=== PATIENT | female | born 1975 | race Caucasian/White ===

== ENCOUNTER 2020-02-26 19:00 | Emergency (ER) | payer MEDICARE, MEDICAID, SELFPAY ==
[2020-02-26 19:08] VITALS: BP 121/82; PULSE 94; RESP 16; O2SAT 97; BMI 43.4
--- NOTE | 2020-02-26 19:12 | ED.LOWEXIN ---
HPI - Extremity Injury (Lower) General Chief Complaint: Extremity Injury, Lower Stated Complaint: shooting pains going down right leg and knee Time Seen by Provider: 02/26/20 19:12 Source: patient Mode of arrival: Ambulatory Limitations: no limitations History of Present Illness HPI Narrative: 44-year-old woman with a history of schizophrenia and depression presents with right thigh pain that is been present for a month. She states that Tylenol ibuprofen and ice packs have been no help. She does say that she was seen by orthopedics and an x-ray was done but no diagnosis or treatment followed. She states that it is worse with walking, laying down helps, she reports no fevers or chills. No recent trauma. Related Data Home Medications Medication Instructions Recorded Confirmed olanzapine [Zyprexa] 10 mg PO QDAY #0 01/29/17 Previous Rx's Medication Instructions Recorded prednisone 50 mg PO AMCC 3 Days #0 tab 01/29/17 Allergies Allergy/AdvReac Type Severity Reaction Status Date / Time No Known Drug Allergies Allergy Verified 02/26/20 19:36 Review of Systems Review of Systems Narrative: Pertinent positive and negative findings as per HPI Remainder of review of systems is otherwise unremarkable for Constitutional: Fevers, chills, weakness ENT: No sore throat, neck pain, ear pain CV: Chest pain, palpitations, dyspnea on exertion Respiratory: Cough, wheeze, dyspnea GI: Nausea, vomiting, diarrhea, change in bowel habits, black or bloody stools : Dysuria, hematuria, flank pain Patient History Medical History Depression (Acute) Schizophrenia (Acute) Social History Smoking Status: Never smoker Smoking Status: Never smoker Substance Use Type: does not use Exam Narrative Exam Narrative: General: Alert appropriate in no acute distress Respiratory: Able to speak in full sentences, no obvious respiratory distress Skin: No obvious rashes, warm and dry Neurologic: Grossly intact no obvious asymmetries or abnormalities Psych; flat affect, cooperative Spine: No tenderness along lumbar spine Extremity: Pain with external rotation of the right hip. Patient complains of mid thigh pain however this is not reproducible with palpation. She also complains of groin pain again, not reproducible with palpation. No skin changes appreciated. No warmth, erythema. No inguinal adenopathy. No tenderness over the trochanter bursa Initial Vital Signs Initial Vital Signs: Vital Signs Pulse Rate 94 H 02/26/20 19:08 Respiratory Rate 16 02/26/20 19:08 Blood Pressure 121/82 02/26/20 19:08 Pulse Oximetry 97 02/26/20 19:08 Course Orders Ordered: ED Orders 02/26/20 19:19 XR femur RT min 2V Stat XR hip w pel if done RT 2V Stat XR lumbar spine 2-3V Stat Discontinued Medications Acetaminophen (Tylenol) 325 mg PO NOW ONE Stop: 02/26/20 19:20 Last Admin: 02/26/20 19:29 Dose: 325 mg Documented by: ANABELLE Ibuprofen (Advil) 400 mg PO NOW ONE Stop: 02/26/20 19:20 Last Admin: 02/26/20 19:29 Dose: 400 mg Documented by: ANABELLE Vital Signs Vital signs: Vital Signs - 8 hr 02/26/20 19:08 02/26/20 20:41 Pulse Rate 94 H 74 Respiratory Rate 16 19 Blood Pressure 121/82 119/72 Pulse Oximetry 97 97 MDM - Extremity Injury (Lower) Medical Records Attestation: I reviewed the patient's medical records. Imaging Data Lumbar spine x-ray: Radiologist's Impression: FINDINGS: Bones: 5 ptu-fca-rbqdifm vertebrae are present. There is normal bony alignment. No vertebral body compression fractures. No suspicious bony lesions. Mild degenerative changes present within the lower lumbar spine including osteophytosis and mild facet sclerosis. Soft tissues: Overlying bowel gas pattern is normal. No suspicious soft tissue calcifications. IMPRESSION: Mild degenerative change. No compression deformities. Dictated by: Edilia Bermudez M.D. on 02/26/2020 at 20:16 Hip x-ray: Radiologist's Impression: FINDINGS: Bones: No fractures or dislocations. Pelvic ring appears intact. No suspicious bony lesions. There is mild bilateral hip joint space narrowing and acetabular osteophytosis. Findings are slightly more severe on the right than the left. Soft tissues: The visualized bowel gas pattern is normal. No suspicious soft tissue calcifications. IMPRESSION: Mild bilateral hip joint osteoarthritis. Dictated by: Edilia Bermudez M.D. on 02/26/2020 at 20:18 Femur x-ray: Radiologist's Impression: FINDINGS: Bones: No acute fracture or dislocation. There is mild hip joint space narrowing. Soft tissues: No suspicious soft tissue calcifications or masses. IMPRESSION: Mild hip osteoarthritis. No bony abnormalities of the femur. If there is continued pain, followup exam or additional imaging such as MRI or CT could be performed for further assessment. Dictated by: Edilia Bermudez M.D. on 02/26/2020 at 20:18 MDM Narrative Medical decision making narrative: 44-year-old woman with a month of right hip pain worse with external rotation and radiating into the groin. No evidence of lumbar compression fracture or femur pathology. Mild hip osteoarthritis. Will discuss use of ibuprofen and Tylenol and refer her back to her primary care physician. She is safe for home discharge at this time Discharge Plan Departure Patient Disposition: Home Clinical Impression: Acute hip pain Qualifiers: Laterality: right Qualified Code(s): M25.551 - Pain in right hip Instructions: DI for Hip Pain Activity Restrictions/Additional Instructions: Thank you for coming in today There is no evidence of a compression fracture in your lower back to be causing pain wrapping around to your hip. There is no suggestion of nerve problems at this level either. Your thigh bone itself looks very healthy. The x-ray of your hip does suggest some mild arthritis developing in the right hip. This may well be part of the issues that you are having. Using 400 mg of ibuprofen (2 pgna-zhi-ujvglwi pills) and 1 Tylenol every 6 hours can be very helpful in controlling pain. At this point it is safe for you to go home Please do follow-up with your primary care physician. Sometimes physical therapy can be helpful with chronic joint pains like this. Prescriptions: No Action olanzapine [Zyprexa] 10 MG tablet 10 mg PO QDAY Qty: 0 RF: 0 prednisone 50 MG tablet 50 mg PO AMCC 3 Days Qty: 0 RF: 0
--- NOTE | 2020-02-26 19:19 | DI.RAD.S_ITS ---
PROCEDURE: XR LUMBAR SPINE 2-3V INDICATIONS: pain TECHNIQUE: 3 views of the lumbar spine were acquired. COMPARISON: None. FINDINGS: Bones: 5 vem-uwa-iwinrix vertebrae are present. There is normal bony alignment. No vertebral body compression fractures. No suspicious bony lesions. Mild degenerative changes present within the lower lumbar spine including osteophytosis and mild facet sclerosis. Soft tissues: Overlying bowel gas pattern is normal. No suspicious soft tissue calcifications. IMPRESSION: Mild degenerative change. No compression deformities. Dictated by: Edilia Bermudez M.D. on 02/26/2020 at 20:16 Approved by: dEilia Bermudez M.D. on 02/26/2020 at 20:17
--- NOTE | 2020-02-26 19:19 | DI.RAD.S_ITS ---
PROCEDURE: XR HIP W PEL IF DONE RT 2V INDICATIONS: pain TECHNIQUE: AP pelvis with lateral view(s) of the right hip(s). COMPARISON: None. FINDINGS: Bones: No fractures or dislocations. Pelvic ring appears intact. No suspicious bony lesions. There is mild bilateral hip joint space narrowing and acetabular osteophytosis. Findings are slightly more severe on the right than the left. Soft tissues: The visualized bowel gas pattern is normal. No suspicious soft tissue calcifications. IMPRESSION: Mild bilateral hip joint osteoarthritis. Dictated by: Edilia Bermudez M.D. on 02/26/2020 at 20:18 Approved by: Edilia Bermudez M.D. on 02/26/2020 at 20:18
--- NOTE | 2020-02-26 19:19 | DI.RAD.S_ITS ---
PROCEDURE: XR FEMUR RT MIN 2V INDICATIONS: pain TECHNIQUE: 2 views of the femur were acquired. COMPARISON: None. FINDINGS: Bones: No acute fracture or dislocation. There is mild hip joint space narrowing. Soft tissues: No suspicious soft tissue calcifications or masses. IMPRESSION: Mild hip osteoarthritis. No bony abnormalities of the femur. If there is continued pain, followup exam or additional imaging such as MRI or CT could be performed for further assessment. Dictated by: Edilia Bermudez M.D. on 02/26/2020 at 20:18 Approved by: Edilia Bermudez M.D. on 02/26/2020 at 20:20
[2020-02-26] MEDS: ACETAMINOPHEN 325 MG TABLET PO (19:29)
[2020-02-26] MEDS: IBUPROFEN 400 MG TABLET PO (19:29)
[2020-02-26 20:41] VITALS: BP 119/72; PULSE 74; RESP 19; O2SAT 97
[2020-02-26 21:38] VITALS: BP 117/72; PULSE 76; RESP 14; O2SAT 96
== END 2020-02-26 21:38 | disposition home or self-care (01) ==
PROVIDERS: Emergency Provider Emergency Medicine
DX: M25.551 Pain in right hip (principal); M16.11 Unilateral primary osteoarthritis, right hip
CPT/HCPCS: 72100; 73502; 73552; 99283; 99284

== ENCOUNTER 2021-03-05 19:57 | Emergency (ER) | payer OTHER, MEDICAID, SELFPAY ==
[2021-03-05 20:02] VITALS: BP 141/70; PULSE 86; RESP 17; TEMP 36.2; O2SAT 97; BMI 42.0
--- NOTE | 2021-03-05 21:24 | ED.GENADULT ---
HPI - General Adult General Chief complaint: Ear Stated complaint: RIGHT EAR PRESSURE PAIN Time Seen by Provider: 03/05/21 20:41 Source: patient Mode of arrival: Ambulatory Limitations: no limitations History of Present Illness HPI narrative: 45-year-old woman with history of depression and schizophrenia presents with acute right-sided ear pain starting this morning. She describes no ear discharge, no fevers. She does not have recurrent ear infections. She describes no dental pain, neck pain. She does note that it hurts when she opens her jaw more on the right side. She does not do regular swimming or have any reason to have an otitis externa. She does not describe any trauma to the area. Related Data Home Medications Medication Instructions Recorded Confirmed olanzapine 10 mg tablet (Zyprexa) 10 mg PO QDAY #0 01/29/17 Previous Rx's Medication Instructions Recorded prednisone 50 mg tablet 50 mg PO AMCC 3 Days #0 tab 01/29/17 Allergies Allergy/AdvReac Type Severity Reaction Status Date / Time No Known Drug Allergies Allergy Verified 02/26/20 19:36 Review of Systems Review of Systems Narrative: Remainder of complete review of systems is otherwise unremarkable except for that included in the HPI. Patient History Medical History Depression Schizophrenia Social History Smoking Status: Never smoker Smoking Status: Never smoker Substance Use Type: does not use Exam Narrative Exam Narrative: General: Alert appropriate in no acute distress HEENT: Tympanic membranes are pearly gunter bilaterally. External canals are normal bilaterally. On the right side she does have tenderness with palpation of the TMJ joint and tenderness with opening the jaw. She does not have significant obvious dental decay nor abscess. She has no cervical adenopathy. Posterior pharynx is unremarkable. Respiratory: Able to speak in full sentences, no obvious respiratory distress Skin: No obvious rashes, warm and dry Neurologic: Grossly intact no obvious asymmetries or abnormalities Psych: Flat affect, cooperative Initial Vital Signs Initial Vital Signs: Vital Signs Temperature 97.1 F L 03/05/21 20:02 Pulse Rate 86 03/05/21 20:02 Respiratory Rate 17 03/05/21 20:02 Blood Pressure 141/70 H 03/05/21 20:02 Pulse Oximetry 97 03/05/21 20:02 Course Vital Signs Vital signs: Vital Signs - 8 hr 03/05/21 20:02 Temperature 97.1 F L Pulse Rate 86 Respiratory Rate 17 Blood Pressure 141/70 H Pulse Oximetry 97 Medical Decision Making MDM Narrative Medical decision making narrative: 45-year-old woman with right ear pain is her main complaint. Actual area of pain is her right TMJ with opening her jaw. No evidence of otitis media or externa, no dental infection, no pharyngeal abscess or pharyngitis. Suspect that this is inflammation at the TMJ. Use ibuprofen and Tylenol, soft diet for a couple of days ice as needed and have her follow-up with her primary care physician. She is safe for home discharge Discharge Plan Departure Patient Disposition: Home Clinical Impression: Temporomandibular joint (TMJ) pain Qualifiers: Laterality: right Qualified Code(s): M26.621 - Arthralgia of right temporomandibular joint Instructions: DI for Temporomandibular Disorder Activity Restrictions/Additional Instructions: Thank you for coming in today You do not have an ear infection. Your pain is actually coming from the right jaw joint. I am going to suggest that you eat a soft diet for the next 2-3 days to avoid having to use the jaw joint heavily. Using 400 mg of ibuprofen (2 bkqc-acc-nutvuxv pills) and 1 Tylenol every 6 hours can be very helpful in controlling pain. Ice to the area of pain can also be helpful. Please follow-up with your primary care physician. Prescriptions: No Action olanzapine [Zyprexa] 10 MG tablet 10 mg PO QDAY Qty: 0 RF: 0 prednisone 50 MG tablet 50 mg PO AMCC 3 Days Qty: 0 RF: 0
[2021-03-05 21:38] VITALS: BP 115/80; PULSE 78; RESP 15; O2SAT 98
== END 2021-03-05 21:39 | disposition home or self-care (01) ==
PROVIDERS: Emergency Provider Emergency Medicine
DX: M26.621 Arthralgia of right temporomandibular joint (principal)
CPT/HCPCS: 99281

== ENCOUNTER → 2022-02-11 11:32 | Outpatient (CLI) | payer OTHER, MEDICAID, SELFPAY ==
[2022-02-11 12:50] LABS: COVID19 -Nasal RAPID Negative (Negative)
== END ==
PROVIDERS: PCP Internal Medicine; Visit Provider Surgery
DX: Z20.822 Contact with and (suspected) exposure to COVID-19 (principal); Z01.812 Encounter for preprocedural laboratory examination
CPT/HCPCS: 87635; C9803

== ENCOUNTER 2022-02-12 11:50 | Day surgery (SDC) | payer OTHER, MEDICAID, SELFPAY ==
--- NOTE | 2022-02-12 | PATH_ITS ---
[facility] Accession Number: [id number] . 01 Material submitted: . PART A: duodenum - DUODENUM BIOPSY PART B: gastrointestinal site - ANTRUM BIOPSY PART C: gastrointestinal site - GASTRIC POLYP PART D: esophagus - GEJ BIOPSY . 01 Diagnosis: A. Duodenum, Biopsy: Duodenal mucosa with no diagnostic abnormality. Negative for active inflammation, features of sprue, dysplasia, or malignancy. . B. Antrum, Biopsy: Gastric mucosa with mild chronic inflammation. No Helicobacter pylori organisms on immunohistochemical stain. No intestinal metaplasia, dysplasia, or malignancy. . C. Gastric Polyp, Biopsy: Fundic gland polyp. No Helicobacter pylori organisms on H/E stain. No intestinal metaplasia, dysplasia or malignancy. . D. GEJ, Biopsy: Squamocolumnar junctional mucosa with chronic and active inflammation and reactive foveolar hyperplasia. Necroinflammatory debris compatible with ulcer. No goblet cell metaplasia or fungal organisms on AB/PAS stain. No dysplasia or malignancy. [facility] 02/17/2022 1649 Local . 01 Electronically signed: . Massiel Blanchard MD, Pathologist NPI- [id number] . 01 Gross description: . Part A: DUODENUM BIOPSY: Received in formalin are 2 fragment(s) of fay, soft tissue measuring 0.3 x 0.2 x 0.1 cm to 0.2 x 0.2 x 0.1 cm submitted entirely in 1 cassette(s) Part B: ANTRUM BIOPSY: Received in formalin are 2 fragment(s) of fay, soft tissue measuring 0.4 x 0.2 x 0.1 cm to 0.2 x 0.1 x 0.1 cm submitted entirely in 1 cassette(s) Part C: GASTRIC POLYP: Received in formalin are 3 fragment(s) of fay, soft tissue measuring 0.4 x 0.2 x 0.2 cm to 0.4 x 0.1 x 0.1 cm submitted entirely in 1 cassette(s) Part D: GEJ BIOPSY: Received in formalin are 2 fragment(s) of fay, soft tissue measuring 0.3 x 0.1 x 0.1 cm to 0.2 x 0.2 x 0.1 cm submitted entirely in 1 cassette(s) /CPE 02/14/2022 0548 Local . 01 Microscopic: . B. An immunohistochemical stain was performed to evaluate for Helicobacter organisms and is negative. The control stain showed appropriate reactivity. . 01 Pathologist provided ICD-10: K29.70, D13.1, K22.10 . 01 CPT . 256049, 175675, 379083, 449381, P85212, 857607 Performed at: 01 [facility] [address] [place] [address], [place], [place] [id number] MD Russell Monique MD Phone: [phone]
--- NOTE | 2022-02-12 12:30 | PM.HP.1 ---
History of Present Illness History of Present Illness Date Patient Seen: 02/12/22 Time Patient Seen: 12:31 Chief complaint: SDC Narrative: I reviewed my recent office note. No significant changes. Patient History Medical History Depression Schizophrenia Family & Social History Tobacco & Substance use: Smoking Status Never smoker Substance Use Type does not use Meds Home Medications and Allergies Home Medications Medication Instructions Recorded Confirmed Type olanzapine 10 mg tablet (Zyprexa) 10 mg PO QDAY ##0 01/29/17 History prednisone 50 mg tablet 50 mg PO AMCC 3 days #0 tabs 01/29/17 Rx Allergies Allergy/AdvReac Type Severity Reaction Status Date / Time No Known Drug Allergies Allergy Verified 02/26/20 19:36 Review of Systems Review of Systems ROS: Yes All systems reviewed with the patient and are negative except as otherwise documented Exam Const General: cooperative HENMT Head: normal to inspection Eyes General: appearance normal, both eyes and all related structures Neck Neck: normal visual inspection Chest Chest: normal inspection of the chest Resp Effort & Inspection: normal respiratory effort Cardio Rate: regular rate GI Inspection: normal to inspection Skin General: no rashes or lesions noted Neuro General: patient alert and patient awake Extrem General: normal to inspection and no pedal edema Psych Appearance: grossly normal Assessment & Plan Assessment & Plan narrative: 46-year-old female with iron-deficiency anemia. EGD and colonoscopy are pursued today. Time Spent With Patient Critical Care time: I spent a total of [] minutes of critical care time on this patient's care today; this time is exclusive of procedural time.
--- NOTE | 2022-02-12 12:32 | PM.PREOP ---
Pre-operative Note COVID-19 COVID-19 status: Negative Result date/Date tested (Pos, Neg/Pending): 02/11/22 Criteria for continued procedure: Possibility delay results in more complex future surgery or treatment Interval Note History & Physical reviewed/Exam performed by Physician: Yes Changes to H&P: No ASA Class (for procedural sedation): II
[2022-02-12 12:43] VITALS: BP 137/72; PULSE 70; RESP 18; TEMP 36.8
[2022-02-12] MEDS: SODIUM CHLORIDE 0.9% 1,000 ML 100 ML IV (12:48)
--- NOTE | 2022-02-12 13:53 | PM.OP.EC ---
Operative Date/Time/Diagnoses Date of procedure: 02/12/22 Time of procedure: 13:53 Pre-op diagnosis: Iron-deficiency anemia Post-op diagnosis: same Procedure & Clinicians Study performed: EGD with biopsies and colonoscopy Same procedure as scheduled: Yes Indications: Iron deficiency anemia Surgeon: Richard Layton Procedure Notes SCOAP/Timeout: Done Procedure in detail: After the risks and benefits were explained, written and verbal informed consent was obtained. The patient was brought into the procedure room and placed into the left lateral decubitus position. Please see nurse readers' advisory service librarian notes for sedation details. The scope was introduced into the mouth through the bite block and advanced under direct visualization to the 2nd portion of the duodenum. The scope was slowly withdrawn carefully examining the mucosa for any defects or lesions. Retroflexed views were accomplished in the stomach. The stomach was decompressed, the scope was then removed from the patient who tolerated the procedure well. The patient was then turned around, a digital rectal examination accomplished. The scope was introduced into the rectum and advanced to the cecum as identified by the appendiceal orifice and ileocecal valve. The terminal ileum was interrogated. The scope was then slowly withdrawn to carefully examine the mucosa for any defects or lesions. Multiple direct views were made through the dentate line for exclusion of pathology. The colon was decompressed. The scope was removed the patient who tolerated the procedure well. Pediatric colonoscope Bowel prep adequate Scope withdrawal time: 7 minutes Sedation minutes: 23 Complications: none Impression: 1. Duodenum: This was visually unremarkable from the bulb through to the 2nd portion. Biopsies were taken from D2 for exclusion of sprue. 2. Stomach: No gastric outlet obstruction no ulcers no mass lesions. Minimal gastropathy was appreciated throughout and antral biopsies were therefore acquired for exclusion of Helicobacter. Retroflexed views of the LES disclosed a small sliding hiatal hernia. There were a couple of diminutive gastric polyps addressed with cold forceps. 3. Esophagus: The squamocolumnar junction correlated with the top of the gastric folds. The patient had evidence of LA grade D erosive and ulcerative esophagitis. Biopsies were taken from the GE junction for histopathology analysis. Linear erosions were seen from the GE junction at about 36 cm from the incisors all the way up to about 25 cm from the incisors. 4. Terminal ileum this appeared visually normal. 5. Colon: There was no evidence of any macroscopic colitis. The ileocecal valve appeared mildly erythematous but there was no obvious mucosal inflammation or loss of mucosal integrity. No evidence of proctitis. No significant polyps or mass lesions throughout. Grade 1 internal hemorrhoids. Endoscopic diagnosis 1. LA grade D erosive esophagitis 2. Small sliding hiatal hernia 3. Mild gastropathy 4. Small gastric polyps 5. Grade 1 internal hemorrhoids 6. Otherwise visually unremarkable colonoscopy and terminal ileoscopy. Post-procedure Plan for aftercare: 1. Await histopathology. 2. Initiate lsua-ovy-lydmqte omeprazole 20 mg twice daily for the next 2 weeks and then once daily thereafter. 3. Repeat EGD 8 weeks to confirm mucosal healing. 4. Repeat colonoscopy 10 years. Disposition: PACU
[2022-02-12 14:02] VITALS: BP 132/76; BP 132/87; PULSE 66; RESP 13; RESP 16; TEMP 36.1; O2SAT 100; O2SAT 99
[2022-02-12 14:07] VITALS: BP 138/87; PULSE 65; RESP 16; O2SAT 99
[2022-02-12 14:11] VITALS: BP 132/88; PULSE 71; RESP 14; O2SAT 99
== END 2022-02-12 14:25 | disposition home or self-care (01) ==
PROVIDERS: PCP Internal Medicine; Referring Provider Internal Medicine Gastroenterology; Visit Provider Internal Medicine Gastroenterology
PROC: 0DJ08ZZ Inspection of Upper Intestinal Tract, Via Natural or Artificial Opening Endoscopic (ICD-10-PCS; CPT 43235; principal; 2022-02-12 13:00)
PROC: 0DJD8ZZ Inspection of Lower Intestinal Tract, Via Natural or Artificial Opening Endoscopic (ICD-10-PCS; CPT 45378; 2022-02-12 13:00)
DX: D50.9 Iron deficiency anemia, unspecified (principal); K20.80 Other esophagitis without bleeding; K44.9 Diaphragmatic hernia without obstruction or gangrene; K31.7 Polyp of stomach and duodenum; K31.9 Disease of stomach and duodenum, unspecified; K64.0 First degree hemorrhoids; K29.50 Unspecified chronic gastritis without bleeding
CPT/HCPCS: 43239; 45378; J1200; J2704

== ENCOUNTER → 2022-04-18 11:13 | Outpatient (CLI) | payer OTHER, MEDICAID, SELFPAY ==
[2022-04-18 12:48] LABS: COVID19 -Nasal RAPID POSITIVE (Negative)
== END ==
PROVIDERS: PCP Internal Medicine; Visit Provider Surgery
DX: Z01.812 Encounter for preprocedural laboratory examination (principal); Z20.822 Contact with and (suspected) exposure to COVID-19
CPT/HCPCS: 87635; C9803

== ENCOUNTER → 2022-05-30 10:59 | Outpatient (CLI) | payer OTHER, MEDICAID, SELFPAY ==
[2022-05-30 14:20] LABS: COVID19 -Nasal RAPID Negative (Negative)
== END ==
PROVIDERS: PCP Internal Medicine; Visit Provider Surgery
DX: Z01.812 Encounter for preprocedural laboratory examination (principal); Z20.822 Contact with and (suspected) exposure to COVID-19
CPT/HCPCS: 87635; C9803

== ENCOUNTER 2022-06-02 11:31 | Day surgery (SDC) | payer OTHER, MEDICAID, SELFPAY ==
--- NOTE | 2022-06-02 | PATH_ITS ---
[facility] Accession Number: [id number] No. of containers..01 Tissue . 01 Material submitted: . esophagus, E-G Junction - GEJ . 01 Diagnosis: Gastroesophageal Junction, Biopsy: Squamocolumnar junctional mucosa with chronic active inflammation. Negative for intestinal metaplasia. Negative for dysplasia and malignancy. [facility] 06/04/2022 1037 Local . 01 Electronically signed: . Umm Dawson MD, Pathologist NPI- [id number] . 01 Gross description: . GEJ: Received in formalin is 1 fragment(s) of fay, soft tissue measuring 0.2 x 0.1 x 0.1 cm submitted entirely in 1 cassette(s) /CPE 06/03/2022 0543 Local . 01 Pathologist provided ICD-10: K20.80 . 01 CPT . 387655 Specimen Comment: A courtesy copy of this report has been sent to [phone] Performed at: 01 [facility] [address] [place] [address] [address], [place], [place] [id number] MD Russell Monique MD Phone: [phone]
[2022-06-02 12:20] VITALS: BP 129/93; PULSE 78; RESP 17; TEMP 36.4; O2SAT 96; BMI 42.0
--- NOTE | 2022-06-02 12:21 | PM.HP.1 ---
History of Present Illness History of Present Illness Date Patient Seen: 06/02/22 Time Patient Seen: 12:21 Chief complaint: SDC Narrative: Improved on PPI but still having some breakthrough symptoms. Taking omeprazole once daily. Patient History Medical History Depression Schizophrenia Family & Social History Tobacco & Substance use: Smoking Status Never smoker alcohol intake current Substance Use Type does not use Meds Home Medications and Allergies Home Medications Medication Instructions Recorded Confirmed Type olanzapine 10 mg tablet (Zyprexa) 10 mg PO QDAY ##0 01/29/17 06/02/22 History gabapentin 300 mg capsule 300 mg PO DAILY 02/12/22 06/02/22 History lamotrigine 100 mg tablet 100 mg PO DAILY 02/12/22 06/02/22 History metformin 500 mg tablet 750 mg PO DAILY 02/12/22 06/02/22 History omeprazole 20 mg PO 06/02/22 History Allergies Allergy/AdvReac Type Severity Reaction Status Date / Time No Known Drug Allergies Allergy Verified 06/02/22 12:13 Review of Systems Review of Systems ROS: Yes All systems reviewed with the patient and are negative except as otherwise documented Exam Const General: cooperative HENMT Head: normal to inspection Eyes General: appearance normal, both eyes and all related structures Neck Neck: normal visual inspection Chest Chest: normal inspection of the chest Resp Effort & Inspection: normal respiratory effort Cardio Rate: regular rate GI Inspection: normal to inspection Skin General: no rashes or lesions noted Neuro General: patient alert and patient awake Extrem General: normal to inspection and no pedal edema Psych Appearance: grossly normal Assessment & Plan Assessment & Plan narrative: 46-year-old female with a history of severe esophagitis. She remains on PPI and is here for follow-up EGD today. Time Spent With Patient Critical Care time: I spent a total of [] minutes of critical care time on this patient's care today; this time is exclusive of procedural time.
--- NOTE | 2022-06-02 12:22 | PM.PREOP ---
Pre-operative Note COVID-19 COVID-19 status: Negative Result date/Date tested (Pos, Neg/Pending): 05/30/22 Criteria for continued procedure: Possibility delay results in more complex future surgery or treatment Interval Note History & Physical reviewed/Exam performed by Physician: Yes Changes to H&P: No ASA Class (for procedural sedation): III
[2022-06-02] MEDS: LACTATED RINGERS 1,000 ML 84 ML IV (12:33)
[2022-06-02 13:04] VITALS: BP 122/87; PULSE 86; RESP 16; O2SAT 95
--- NOTE | 2022-06-02 13:08 | PM.OP.EGD ---
Operative Date/Time/Diagnoses Date of procedure: 06/02/22 Time of procedure: 13:08 Pre-op diagnosis: Severe Esophagitis Post-op diagnosis: same Procedure & Clinicians Study performed: EGD with biopsy Same procedure as scheduled: Yes Indications: Severe esophagitis Surgeon: Richard Layton Procedure Notes SCOAP/Timeout: Done Procedure in detail: After the risks and benefits were explained, written and verbal informed consent was obtained. The patient was brought into the procedure room and placed into the left lateral decubitus position. Please see anesthesia note for sedation details. The scope was introduced into the mouth through the bite block and advanced under direct visualization to the 2nd portion of the duodenum. The scope was slowly withdrawn carefully examining the mucosa for any defects or lesions. Retroflexed views were accomplished in the stomach. The stomach was decompressed, the scope was then removed from the patient who tolerated the procedure well. Complications: none Impression: 1. Duodenum: This was normal from the bulb through to the 2nd portion. 2. Stomach: No ulcers no mass lesions no outlet obstruction. There were again a few scattered small diminutive benign-appearing polyps. We left these alone today. Retroflexed views of the LES were unremarkable. 3. Esophagus: The squamocolumnar junction generally correlated with the top of the gastric folds. In the 8:00 a.m. location there was a slight extension up into the tubular esophagus of the salmon-colored probably still mildly inflamed mucosa. This was targeted for a biopsy to exclude specialized intestinal metaplasia. The patient still had evidence of LA grade C erosive esophagitis extending up to 33 cm from the incisors. The GE junction was at 36 cm from the incisors. Subtle sliding hiatal hernia was noted. Endoscopic diagnosis 1. Small sliding hiatal hernia 2. LA grade C erosive esophagitis 3. Benign-appearing gastric polyps Post-procedure Plan for aftercare: 1. Await histopathology. 2. Increase omeprazole up to twice daily. 3. Follow up GI clinic 6-8 weeks to review response. Disposition: PACU
[2022-06-02 13:14] VITALS: BP 124/88; PULSE 83; RESP 16; TEMP 36.4; O2SAT 95
[2022-06-02 13:32] VITALS: BP 134/97; PULSE 73; RESP 16; TEMP 36.2; O2SAT 95
== END 2022-06-02 13:35 | disposition home or self-care (01) ==
PROVIDERS: PCP Internal Medicine; Referring Provider Internal Medicine Gastroenterology; Visit Provider Internal Medicine Gastroenterology
PROC: 0DJ08ZZ Inspection of Upper Intestinal Tract, Via Natural or Artificial Opening Endoscopic (ICD-10-PCS; CPT 43235; principal; 2022-06-02 13:00)
DX: K20.80 Other esophagitis without bleeding (principal); K44.9 Diaphragmatic hernia without obstruction or gangrene; K31.7 Polyp of stomach and duodenum; K29.50 Unspecified chronic gastritis without bleeding
CPT/HCPCS: 43239; 81025; J2704; J3010

== ENCOUNTER 2022-08-29 12:29 | Day surgery (SDC) | payer OTHER, MEDICAID, SELFPAY ==
[2022-08-29] VITALS (10 sets, daily range): BP systolic 130–169; BP diastolic 75–91; PULSE 69–87; RESP 10–20; TEMP 36.2–36.6; O2SAT 94–98; BMI 47.2
--- NOTE | 2022-08-29 | PATH_ITS ---
[facility] Accession Number: [id number] No. of containers..01 Tissue . 01 Material submitted: . gallbladder - GALLBLADDER . 01 Diagnosis: Gallbladder, Cholecystectomy: Consistent with chronic cholecystitis. - Cholesterolosis and cholesterol polyps associated. - Negative for dysplasia and neoplasia. [facility] 09/03/2022 1801 Local . 01 Electronically signed: . Joslyn Connors MD, Pathologist NPI- [id number] . 01 Gross description: . The specimen is received in formalin labeled with the patient's name, , and gallbladder, and consists of a disrupted gallbladder measuring 8.4 x 3.3 x 1.3 cm with fay, smooth serosa that is significant for a full-thickness defect measuring 0.6 cm in diameter. The hepatic surface is rough and unremarkable. The cystic duct is received closed with a clamp, is inked blue, and no pericystic lymph node is identified. The lumen contains dark green mucoid bile with no calculi identified in the lumen or the container. The mucosa is green to brown and velvety with numerous pinpoint yellow areas consistent with cholesterol. Also identified are multiple polypoid structures ranging from 0.1 cm to 0.4 cm in greatest dimension. No lesions are identified. The garcias average 0.3 cm thick. Program Manager Environmental Planning sections to include the cystic duct margin and full-thickness sections with polyps are submitted in cassette A1. ([id number]) /FRR 08/30/2022 1150 Local . 01 Pathologist provided ICD-10: K81.1 . 01 CPT . 232703 Specimen Comment: A courtesy copy of this report has been sent to [phone] Performed at: 01 [facility] [address] [place] [address] [id number] MD Russell Monique MD Phone: [phone]
--- NOTE | 2022-08-29 14:05 | PM.PREOP ---
Pre-operative Note Interval Note History & Physical reviewed/Exam performed by Physician: Yes Changes to H&P: No
[2022-08-29] MEDS: CEFAZOLIN 2 GM/100 ML PREMIX 100 ML IV (14:16)
--- NOTE | 2022-08-29 14:56 | SUR.OPER ---
Supine on padded OR bed, head on pillow, safety belt at thigh, left arm padded and tucked at side. Right arm secured on padded arm board <90 degrees abduction. Legs uncrossed. Padded footboard in place. Tape over blanket to secure lower legs. Gel pad under bilateral feet.
[2022-08-29] MEDS: BUPIVACAINE 0.25% (PF) VIAL 30 ML INJ (15:05)
[2022-08-29] MEDS: HYDROMORPHONE 2 MG INJ IV ×3 (15:43→16:06)
--- NOTE | 2022-08-29 15:54 | P.OP_ITS ---
Operative Date/Time/Diagnoses Date of procedure: 08/29/22 Time of procedure: 15:54 Pre-op diagnosis: Biliary colic Post-op diagnosis: same Procedure & Clinicians Procedure: Laparoscopic cholecystectomy Same procedure as scheduled: Yes Indications: Symptoms and radiographic findings consistent with biliary colic Surgeon: Babar Daniel Anesthesia Type: General Operative Notes Findings: Critical view of safety established. No evidence acute cholecystitis Specimen(s): other (gallbladder) Estimated Blood Loss (mL): 20 Procedure in detail: The patient was placed supine on the table and bilateral lower extremity compression devices were applied. Anesthesia was induced they were intubated with an endotracheal tube and received 2g of Ancef. A time-out was performed. They were prepped and draped in sterile fashion. An supraumbilical incision was made. The fascia was elevated incised and the abdomen was entered atraum atically. A blunt tip 12mm balloon trocar was then inserted, pneumoperitoneum was established and inspection of the abdomen demonstrated no evidence of injury. They were placed head up and right side up and then a 11 mm port was placed high in the epigastrium and two 5mm in the right upper quadrant. The gallbladder was grasped by the fundus and retracted over the liver and retracted laterally by the infundibulum. There was no evidence of acute cholecystitis. Using electrocautery the lateral plane between the gallbladder and the liver was opened towards the fundus. The gallbladder was then retracted laterally and the medial plane was developed in the same manner. With the gallbladder mobilized the bottom of the cystic plate was visualized. The hepatocystic triangle was meticulosly skeletonized with blunt dissection of fat and fibrous tissue from both the front and the back. Only two structures were then clearly seen entering the gallbladder the cystic duct and the cystic artery. With the critical view of safety fully established the cystic duct was clipped twice proximally and once distally using the 10 mm Weck hemoclip applied under direct visualization and then sharply divided. The cystic artery was divided in the same fashion. The gallbladder was removed from the liver bed using electro cautery. The liver bed was then inspected for hemostasis and this was achieved. The abdomen was irrigated with sterile saline and inspection was made that showed the clips in good position. The specimen was removed using Endo-Catch. The abdomen was desufflated. The umbilical fascia was closed with 0 Vicryl in a [id number] fashion under direct visualization. Skin incisions were irrigated and closed with 4-0 Monocryl. 30 ml of 0.25% bupivacaine was infiltrated into the subcutaneous tissue of the incisions. The wounds were sealed with Dermabond. Patient emerged from anesthesia was extubated and transferred to recovery in stable condition. The sponge and instrument count at the end of the operation was correct. Complications: none Post-operative Condition: stable Disposition: same day surgery
[2022-08-29] MEDS: OXYCODONE/ACETAMINOPHEN 5/325 TABLET 1 TAB PO ×2 (15:58→16:28)
--- NOTE | 2022-08-29 16:33 | SUR.PHASEI ---
Christie called and updated. Caro Diaz.
== END 2022-08-29 17:25 | disposition home or self-care (01) ==
PROVIDERS: PCP Internal Medicine; Referring Provider Surgery; Visit Provider Surgery
PROC: 0FT44ZZ Resection of Gallbladder, Percutaneous Endoscopic Approach (ICD-10-PCS; CPT 47562; principal; 2022-08-29 14:00)
DX: K81.1 Chronic cholecystitis (principal); E66.9 Obesity, unspecified; Z68.41 Body mass index [BMI] 40.0-44.9, adult; K21.9 Gastro-esophageal reflux disease without esophagitis
CPT/HCPCS: 47562; 82962; J0690; J1170; J2405; J2704; J3010

== ENCOUNTER 2022-11-02 17:25 | Emergency (ER) | payer OTHER, MEDICAID, SELFPAY ==
[2022-11-02] VITALS (10 sets, daily range): BP systolic 122–149; BP diastolic 70–105; PULSE 91–106; RESP 14–20; TEMP 36.8; O2SAT 94–97; BMI 46.0
[2022-11-02 18:05] LABS: Add Manual Diff / Slide Review NO; Basophils Absolute Auto 0 /uL (0-100); Basophils Percent Auto 0.4 % (0-2); Eosinophils Absolute Auto 0 /uL (0-450); Hematocrit 37.8 % (36-46); Hemoglobin 12.6 g/dL (12.0-16.0); Lymphocytes Absolute Auto 2600 /uL (1100-4500); Mean Corpuscular HGB Conc 33.4 % (30-36); Mean Corpuscular Hemoglobin 27.5 PG (26-34); Mean Corpuscular Volume 82.2 fL (80-100); Monocytes Absolute Auto 500 /uL (0-900); Monocytes Percent Auto 6.5 % (3-14); Neutrophils Absolute Auto 4700 /uL (1500-7000); Neutrophils Percent Auto 60.1 % (50-75); Platelet Count 244 X10^3/uL (150-400); Red Cell Distribution Width 14.7 % (11.6-14.8); White Blood Cell Count 7.9 X10^3/uL (4.5-11.0)
[2022-11-02 18:13] LABS: Alanine Aminotransferase 40 IU/L (<35); Albumin 4.2 g/dL (3.5-5.0); Albumin Globulin Ratio 1.3 (1.0-2.8); Alkaline Phosphatase 80 U/L (38-126); Aspartate Aminotransferase 38 IU/L (14-36); BUN Creatinine Ratio 24.1 (6-22); Bilirubin Total 0.5 mg/dL (0.2-1.3); Blood Urea Nitrogen 14 mg/dL (7-17); Calcium 9.2 mg/dL (8.4-10.2); Carbon Dioxide 27 mmol/L (22-32); Chloride 101 mmol/L (98-107); Estimated Glomerular Filt Rate > 60 mL/min (>60); Globulin 3.3 g/dL (1.7-4.1); Glucose 130 mg/dL (70-100); HEMOLYSIS 26 (0-50); Lipase 69 U/L (23-300); Potassium 3.9 mmol/L (3.4-5.1); Sodium 137 mmol/L (137-145); Total Protein 7.5 g/dL (6.3-8.2)
--- NOTE | 2022-11-02 18:17 | ED_ITS ---
HPI - General Adult General Chief complaint: Abdominal Pain Stated complaint: Vomiting, Left upper abd pain x2days Time Seen by Provider: 11/02/22 18:14 Source: patient Mode of arrival: Family Vehicle History of Present Illness HPI narrative: 46-year-old woman with history of depression, schizophrenia, diabetes, a history of esophagitis with upper endoscopy in May of this yea, cholecystectomy in August of this year who presents today with 2-3 days of diffuse abdominal pain, nausea vomiting and unable to keep liquids down. She does not describe fevers. She notes a small amount of diarrhea. No blood in the emesis or the stool. No chest pain, palpitations headaches. She comes in today because it has been more than 24 hours and she is been able to keep even liquids in. Initially she is complaining of left upper quadrant pain does not describe any radiation and no perforating pain through to her back. Related Data Home Medications Medication Instructions Recorded Confirmed olanzapine 10 mg tablet (Zyprexa) 10 mg PO QDAY ##0 01/29/17 09/11/22 gabapentin 300 mg capsule 300 mg PO DAILY 02/12/22 09/11/22 lamotrigine 100 mg tablet 100 mg PO DAILY 02/12/22 09/11/22 metformin 500 mg tablet 750 mg PO DAILY 02/12/22 09/11/22 omeprazole 20 mg PO DAILY 06/02/22 09/11/22 Previous Rx's Medication Instructions Recorded acetaminophen 325 mg capsule 650 mg PO QID PRN pain #60 caps 08/29/22 (Tylenol) ibuprofen 200 mg tablet 400 mg PO Q6H #60 tabs 08/29/22 oxycodone 5 mg tablet 5 mg PO Q6H PRN pain #20 tabs 08/29/22 Allergies Allergy/AdvReac Type Severity Reaction Status Date / Time No Known Drug Allergies Allergy Verified 11/02/22 17:30 Review of Systems Review of Systems Narrative: Pertinent positive and negative findings as per HPI Patient History Medical History (Updated 11/02/22 @ 22:23 by Joanne Romano MD) Depression Erosive esophagitis Schizophrenia Surgical History (Updated 11/02/22 @ 18:44 by Joanne Romano MD) H/O reduction mammoplasty Hx laparoscopic cholecystectomy Social History marital status: unmarried,single household members: spouse, children and friend(s) lives independently: Yes occupational status: unemployed Smoking Status: Never smoker alcohol intake: former substance use type: does not use Smoking Status: Never smoker alcohol intake frequency: 0-2 drinks per day Substance Use Type: does not use Exam Initial Vital Signs Initial Vital Signs: Vital Signs Temperature 98.3 F 11/02/22 17:27 Pulse Rate 106 H 11/02/22 17:27 Respiratory Rate 18 11/02/22 17:27 Blood Pressure 141/105 H 11/02/22 17:27 Pulse Oximetry 97 11/02/22 17:27 Oxygen Delivery Method Room Air 11/02/22 17:27 General:in no acute distress. Able to give a complete and coherent history. W ell-nourished well-developed HEENT: Moist mucous membranes, normal sclera with reactive pupils, Respiratory: Lungs are clear to auscultation, no wheezing no rales no rhonchi. Full and symmetrical air movement Cardiac: Regular rate and rhythm no murmurs no bruits Abdomen: Soft, diffuse tenderness in all quadrants with slight increased tenderness in the left upper quadrant, no rebound or guarding., good bowel tones, no flank pain Skin: Warm and dry, no rashes Neurologic: Grossly neurologically intact with no obvious asymmetries or abnormalities Extremities: No trauma, well perfused Psych: Cooperative, flat affect but good eye contact, Course Orders Ordered: ED Orders 11/02/22 17:30 EKG-12 Lead Stat 11/02/22 17:58 Complete Blood Count AUTO DIFF Stat Comprehensive Metabolic Panel Stat Lipase Stat 11/02/22 18:36 CT abdomen pelvis w con Stat 11/02/22 21:11 UA Complete [Urinalysis and Microscopic] Stat Urine Culture Stat Hydromorphone HCl (Hydromorphone 0.5 Mg Inj) 0.5 mg IV Q15MIN PRN PRN Reason: Pain, Last Admin: 11/02/22 20:10 Dose: 0.5 mg Documented By: Admin: 11/02/22 19:09 Dose: 0.5 mg Documented By: DACIA Ondansetron HCl (Ondansetron 4 Mg Odt) 4 mg PO NOW PRN PRN Reason: Nausea And Vomiting Ondansetron HCl (Ondansetron 4 Mg/2 Ml Inj) 4 mg IV NOW PRN PRN Reason: Nausea And Vomiting Discontinued Medications Sodium Chloride (Normal Saline 0.9%) 1,000 mls @ 1,000 mls/hr IV BOLUS ONE Stop: 11/02/22 19:34 Last Infusion: 11/02/22 20:16 Dose: 0 mls/hr Documented By: Infusion: 11/02/22 19:40 Dose: 0 mls/hr Documented By: Admin: 11/02/22 19:09 Dose: 1,000 mls/hr Documented By: DACIA Metoclopramide HCl (Metoclopramide 10 Mg/2 Ml Inj) 10 mg IV NOW ONE Stop: 11/02/22 20:01 Last Admin: 11/02/22 20:10 Dose: 10 mg Documented By: Ondansetron HCl (Ondansetron 4 Mg/2 Ml Inj) 4 mg IV NOW ONE Stop: 11/02/22 18:36 Last Admin: 11/02/22 19:10 Dose: 4 mg Documented By: DACIA Vital Signs Vital signs: Vital Signs - 8 hr 11/02/22 17:27 11/02/22 18:30 11/02/22 19:57 Temperature 98.3 F Pulse Rate 106 H 92 H 93 H Respiratory Rate 18 20 Blood Pressure 141/105 H 129/97 H Pulse Oximetry 97 97 96 Oxygen Delivery Method Room Air Room Air 11/02/22 18:00 11/02/22 20:00 11/02/22 20:00 Temperature Pulse Rate 99 H 92 H Respiratory Rate 20 14 Blood Pressure 128/79 122/74 Pulse Oximetry 96 Oxygen Delivery Method 11/02/22 20:28 11/02/22 20:28 11/02/22 20:30 Temperature Pulse Rate 91 H Respiratory Rate 17 Blood Pressure 149/79 H 142/81 H Pulse Oximetry 96 Oxygen Delivery Method 11/02/22 20:30 11/02/22 21:00 11/02/22 21:00 Temperature Pulse Rate 91 H 93 H Respiratory Rate 14 15 Blood Pressure 128/74 Pulse Oximetry 95 94 Oxygen Delivery Method 11/02/22 21:30 11/02/22 21:30 Temperature Pulse Rate 95 H Respiratory Rate 16 Blood Pressure 122/70 Pulse Oximetry 95 Oxygen Delivery Method Medical Decision Making Lab Data 11/02/22 17:58 11/02/22 17:58 Labs: Lab Results 11/02/22 11/02/22 11/02/22 Range/Units 17:58 17:58 21:11 WBC 7.9 (4.5-11.0) X10^3/uL RBC 4.60 (4.0-5.2) X10^6/uL Hgb 12.6 (12.0-16.0) g/dL Hct 37.8 (36-46) % MCV 82.2 (80-100) fL MCH 27.5 (26-34) PG MCHC 33.4 (30-36) % RDW 14.7 (11.6-14.8) % Plt Count 244 (150-400) X10^3/uL Neut % (Auto) 60.1 (50-75) % Lymph % (Auto) 33.0 (25-40) % [place] % (Auto) 6.5 (3-14) % Eos % (Auto) 0.0 L (2-4) % Baso % (Auto) 0.4 (0-2) % Neut # (Auto) 4700 (7353-1720) /uL Lymph # (Auto) 2600 (1358-2493) /uL [place] # (Auto) 500 (0-900) /uL Eos # (Auto) 0 (0-450) /uL Baso # (Auto) 0 (0-100) /uL Sodium 137 (137-145) mmol/L Potassium 3.9 (3.4-5.1) mmol/L Chloride 101 (98-107) mmol/L Carbon Dioxide 27 (22-32) mmol/L BUN 14 (7-17) mg/dL Creatinine 0.58 (0.52-1.04) mg/dL Estimated GFR > 60 (>60) mL/min BUN/Creatinine Ratio 24.1 H (6-22) Glucose 130 H (70-100) mg/dL Calcium 9.2 (8.4-10.2) mg/dL Total Bilirubin 0.5 (0.2-1.3) mg/dL AST 38 H (14-36) IU/L ALT 40 H (<35) IU/L Alkaline Phosphatase 80 (38-126) U/L Total Protein 7.5 (6.3-8.2) g/dL Albumin 4.2 (3.5-5.0) g/dL Globulin 3.3 (1.7-4.1) g/dL Albumin/Globulin Ratio 1.3 (1.0-2.8) Lipase 69 (23-300) U/L Urine Color Yellow Urine Appearance Clear Urine pH 6.5 (4.5-8.0) Ur Specific [place] 1.010 (1.000-1.035) Urine Protein Negative (Negative) Urine Glucose (UA) Negative (Negative) g/dL Urine Ketones Negative (NEGATIVE) Urine Occult Blood Negative (Negative) Urine Nitrate Negative (Negative) Urine Bilirubin Negative (NEGATIVE) Urine Urobilinogen 0.2 (0.2) E.U./dL Ur Leukocyte Esterase 1+ H (NEGATIVE) Urine RBC None seen (0-5/HPF) Urine WBC 1-5/hpf (0-5/HPF) Ur Squamous Epith Cells None seen (0-5/HPF) Urine Bacteria Few (2-10) H (None) Ur Culture Indicated? Specimen cultured Point of Care Testing Test Results Negative Urine Dip Bedside Urine Glucose Negative Bedside Urine Bilirubin - Negative Bedside Urine Ketone - Negative Urine Specific [place] 1.010 Bedside Urine Occult Blood - Negative Bedside Urine pH 6.5 Bedside Urine Protein - Negative Bedside Urine Urobilinogen - Negative Bedside Urine Nitrite - Negative Bedside Urine Leukocytes + 70 Esterase Point of care testing: Point of Care Testing Test Results Negative Urine Dip Bedside Urine Glucose Negative Bedside Urine Bilirubin - Negative Bedside Urine Ketone - Negative Urine Specific [place] 1.010 Bedside Urine Occult Blood - Negative Bedside Urine pH 6.5 Bedside Urine Protein - Negative Bedside Urine Urobilinogen - Negative Bedside Urine Nitrite - Negative Bedside Urine Leukocytes + 70 Esterase MDM Narrative Medical decision making narrative: CC: Abdominal pain, acute onset uncertain diagnosis Complicating co-morbidities: Known esophagitis based on EGD in May, schizophrenia, diabetes Data collected from: patient, Medical records reviewed: Endoscopy notes from May, Differential considered: Gastroenteritis, esophagitis, pancreatitis, perforated gastric ulcer, enteritis Exam documented above, pertinent findings include: Mild diffuse abdominal pain without rebound or guarding Lab Test results independently reviewed as above. Pertinent findings: CBC is unremarkable without evidence of leukocytosis or anemia Chemistries are reassuring, slightly elevated AST and ALT. Remainder of liver studies are unremarkable Lipase is unremarkable Imaging studies independently reviewed: CT scan of the abdomen shows a small hiatal hernia with mild distal esophageal wall thickening consistent with known esophagitis Treatments: Fluids, antiemetics, pantoprazole Discussion: On re-evaluation patient is feeling significantly better. Pain has resolved. She is no longer vomiting she is able to keep fluids down. We reviewed the probability that her pain is related to her esophagitis. She is currently taking 40 mg of omeprazole daily suggested that this increased to 40 mg twice a day for the next 2 weeks. She does avoid nonsteroidals. There is no evidence of acute surgical abdomen nor need for hospital admission at this time. Questions are answered and patient is safe for discharge home Discharge Plan Departure Patient Disposition: Home Clinical Impression: Acute epigastric pain, Esophagitis Instructions: DI for Esophagitis Activity Restrictions/Additional Instructions: Thank you for coming in today Your workup was fairly reassuring. There is no evidence of significant infection or significant bleeding or acute blood loss. Your CT scan showed that your esophagus is still a bit swollen and I suspect that the esophagitis that they found in May is worsening again. I am going to recommend that you increase your omeprazole from 40 mg daily to 40 mg morning and night for the next 2 weeks to see if this helps with the symptoms. I encourage you to follow-up with your primary care doctor to0 If you find that you are getting worse or develop any new symptoms, please feel free to return to the emergency department for further evaluation. Prescriptions: No Action olanzapine [Zyprexa] 10 MG tablet 10 mg PO QDAY Qty: 0 metformin 500 mg tablet 750 mg PO DAILY Rx Instructions: 2 in a.m. gabapentin 300 mg capsule 300 mg PO DAILY lamotrigine 100 mg tablet 100 mg PO DAILY omeprazole 20 mg PO DAILY ibuprofen 200 mg tablet 400 mg PO Q6H Qty: 60 0RF oxycodone 5 mg tablet 5 mg PO Q6H PRN (Reason: pain) Qty: 20 0RF acetaminophen [Tylenol] 325 mg capsule 650 mg PO QID PRN (Reason: pain) Qty: 60 0RF Referrals: Leandro Waite MD [Primary Care Provider] - Stand Alone Forms: Patient Portal/API
--- NOTE | 2022-11-02 18:36 | DI.CT.S_ITS ---
PROCEDURE: CT ABDOMEN PELVIS W CON INDICATIONS: abdominal pain TECHNIQUE: After the administration of intravenous contrast, axial sections acquired from the lung bases to the pubic symphysis. Coronal and sagittal reformats were performed. For radiation dose reduction, the following was used: automated exposure control, adjustment of mA and/or kV according to patient size. COMPARISON: None. FINDINGS: Image quality: Excellent. Lung bases: Lung bases are clear. Small hiatal hernia. Suggestion of mild circumferential distal esophageal wall thickening. Heart: No significant findings. ABDOMEN: Liver: Hepatic steatosis. Gallbladder: Status post cholecystectomy. Biliary ducts: Unremarkable. Pancreas: Homogeneous enhancement without focal lesions or pancreatic ductal dilatation. No peripancreatic inflammation or organized fluid collections. Spleen: No splenomegaly Adrenal Glands: Unremarkable. Kidneys and Ureters: Kidneys are symmetric in size and enhancement, and there is no obstructive uropathy. No perinephric inflammatory changes. Ureters are normal in course and caliber. Stomach and Bowel: Stomach, small bowel loops, and colon are unremarkable. Normal appendix. Peritoneum: No abnormal intraperitoneal fluid. No free air. Ventral Wall: No hernias. Abdominal Nodes: No retroperitoneal or mesenteric adenopathy by size criteria. Vessels: Aorta and inferior vena cava are normal in size. PELVIS: Pelvic Organs: Reproductive organs are unremarkable as imaged. Bladder: Unremarkable. Pelvic Nodes: No enlarged lymph nodes. Miscellaneous: No hernias are seen. Bones: No acute compression fracture. No suspicious osseous lesions. IMPRESSION: 1. Small hiatal hernia with suggestion of mild distal esophageal wall thickening. Findings may represent esophagitis. 2. Hepatic steatosis. 3. Status post cholecystectomy. Dictated by: Cuauhtemoc Valdez M.D. on 11/02/2022 at 19:04 Approved by: Cuauhtemoc Valdez M.D. on 11/02/2022 at 19:09
[2022-11-02] MEDS: HYDROMORPHONE 0.5 MG INJ IV ×2 (19:09→20:10)
[2022-11-02] MEDS: SODIUM CHLORIDE 0.9% 1,000 ML 1000 ML IV (19:09)
[2022-11-02] MEDS: ONDANSETRON 4 MG/2 ML INJ IV (19:10)
[2022-11-02] MEDS: METOCLOPRAMIDE 10 MG/2 ML INJ IV (20:10)
--- NOTE | 2022-11-02 20:48 | PC.NURSE ---
Pt used bedside commode with staff assist. Endorses weakness, denies other symptoms. Lab at bedside for blood draw.
[2022-11-02 21:15] LABS: Appearance Urine UA CLEAR; Bilirubin Urine UA NEGATIVE (NEGATIVE); Color Urine UA YELLOW; Glucose Urine UA NEGATIVE (Negative); Ketones Urine UA NEGATIVE (NEGATIVE); Leukocyte Esterase Urine UA 1+ (NEGATIVE); Nitrite Urine UA NEGATIVE (Negative); Occult Blood Urine UA NEGATIVE (Negative); Protein Urine UA NEGATIVE (Negative); Urobilinogen Urine UA 0.2 E.U./dL (0.2)
[2022-11-02 21:19] LABS: pH Urine UA 6.5 (4.5-8.0)
[2022-11-02 21:29] LABS: Bacteria Urine Few (2-10); RBC Urine None Seen (0-5/HPF); Squamous Epithelial Cell Urine None Seen (0-5/HPF); WBC Urine 1-5/HPF (0-5/HPF)
[2022-11-02 21:30] LABS: Culture Indicated Urine Specimen Cultured
== END 2022-11-02 22:30 | disposition home or self-care (01) ==
PROVIDERS: Emergency Medicine; Emergency Provider Emergency Medicine; PCP Internal Medicine
DX: R10.13 Epigastric pain (principal); K20.90 Esophagitis, unspecified without bleeding; R11.10 Vomiting, unspecified
CPT/HCPCS: 36415; 74177; 80053; 81001; 81003; 81025; 83690; 85025; 87086; 96361; 96374; 96375; 99284; J1170; J2405; J2765; Q9967

== ENCOUNTER 2022-11-23 19:00 | Emergency (ER) | payer OTHER, MEDICAID, SELFPAY ==
[2022-11-23 19:18] VITALS: BP 160/89; PULSE 88; RESP 16; TEMP 36.7; O2SAT 94; BMI 46.3
--- NOTE | 2022-11-23 19:47 | ED.GENADULT ---
HPI - General Adult General Chief complaint: Abdominal Pain Stated complaint: VOMITING,ABD PAIN, CONSTIPATION Time Seen by Provider: 11/23/22 19:30 Source: patient Mode of arrival: Ambulatory History of Present Illness HPI narrative: 46-year-old female who states she feels like she is been constipated for the past couple days. She tried to have a bowel movement a couple hours ago and it was very hard and uncomfortable. She is having some suprapubic abdominal discomfort. Also is having some nausea and has vomited 1 time. No fevers. No chest pain or shortness of breath. Related Data Home Medications Medication Instructions Recorded Confirmed olanzapine 10 mg tablet (Zyprexa) 10 mg PO QDAY ##0 01/29/17 09/11/22 gabapentin 300 mg capsule 300 mg PO DAILY 02/12/22 09/11/22 lamotrigine 100 mg tablet 100 mg PO DAILY 02/12/22 09/11/22 metformin 500 mg tablet 750 mg PO DAILY 02/12/22 09/11/22 omeprazole 20 mg PO DAILY 06/02/22 09/11/22 Previous Rx's Medication Instructions Recorded acetaminophen 325 mg capsule 650 mg PO QID PRN pain #60 caps 08/29/22 (Tylenol) ibuprofen 200 mg tablet 400 mg PO Q6H #60 tabs 08/29/22 oxycodone 5 mg tablet 5 mg PO Q6H PRN pain #20 tabs 08/29/22 Allergies Allergy/AdvReac Type Severity Reaction Status Date / Time No Known Drug Allergies Allergy Verified 11/02/22 17:30 Review of Systems Constitutional Constitutional: Reports system reviewed and no additional complaints, except as documented Gastrointestinal Gastrointestinal: Reports system reviewed and no additional complaints, except as documented Genitourinary Genitourinary: Reports system reviewed and no additional complaints, except as documented Patient History Medical History Depression Erosive esophagitis Schizophrenia Surgical History (Updated 11/02/22 @ 18:44 by Joanne Romano MD) H/O reduction mammoplasty Hx laparoscopic cholecystectomy Social History marital status: unmarried,single household members: spouse, children and friend(s) lives independently: Yes occupational status: unemployed Smoking Status: Never smoker alcohol intake: former substance use type: does not use Smoking Status: Never smoker alcohol intake frequency: 0-2 drinks per day Substance Use Type: does not use Exam Initial Vital Signs Initial Vital Signs: Vital Signs Temperature 98.0 F 11/23/22 19:18 Pulse Rate 88 11/23/22 19:18 Respiratory Rate 16 11/23/22 19:18 Blood Pressure 160/89 H 11/23/22 19:18 Pulse Oximetry 94 11/23/22 19:18 Oxygen Delivery Method Room Air 11/23/22 19:18 Const General: cooperative, comfortable and No ill appearing HENMT Head: normal to inspection and normocephalic Resp Effort & Inspection: normal respiratory effort Auscultation: clear to auscultation bilaterally Cardio Rate: regular rate Rhythm: regular rhythm GI Inspection: normal to inspection and non-distended Palpation: soft and No tender Skin General: no rashes or lesions noted Neuro General: patient alert, patient awake and moves all extremities Speech: speech normal Extrem General: normal to inspection and capillary refill normal Course Orders Ordered: ED Orders 11/23/22 19:30 Urine Culture Stat Urine Microscopic Stat 11/23/22 19:48 XR abdomen 1V Stat 11/23/22 20:02 Complete Blood Count AUTO DIFF Stat Comprehensive Metabolic Panel Stat Lipase Stat Discontinued Medications Ondansetron HCl (Ondansetron 4 Mg Odt) 4 mg PO NOW PRN PRN Reason: Nausea And Vomiting Ondansetron HCl (Ondansetron 4 Mg/2 Ml Inj) 4 mg IV NOW PRN PRN Reason: Nausea And Vomiting Vital Signs Vital signs: Vital Signs - 8 hr 11/23/22 21:27 11/23/22 21:28 11/23/22 21:28 Pulse Rate 86 80 Blood Pressure 136/75 Pulse Oximetry 96 97 Oxygen Delivery Method 11/23/22 21:30 11/23/22 21:30 Pulse Rate 83 Blood Pressure 133/76 Pulse Oximetry 96 Oxygen Delivery Method Room Air Medical Decision Making Lab Data Lab results reviewed: Yes I reviewed the patient's lab results. 11/23/22 20:02 11/23/22 20:02 Labs: Lab Results 11/23/22 11/23/22 11/23/22 Range/Units 19:30 20:02 20:02 WBC 7.9 (4.5-11.0) X10^3/uL RBC 4.43 (4.0-5.2) X10^6/uL Hgb 12.2 (12.0-16.0) g/dL Hct 36.8 (36-46) % MCV 83.2 (80-100) fL MCH 27.6 (26-34) PG MCHC 33.2 (30-36) % RDW 14.5 (11.6-14.8) % Plt Count 283 (150-400) X10^3/uL Neut % (Auto) 62.7 (50-75) % Lymph % (Auto) 28.7 (25-40) % [place] % (Auto) 8.2 (3-14) % Eos % (Auto) 0.0 L (2-4) % Baso % (Auto) 0.4 (0-2) % Neut # (Auto) 5000 (3691-5452) /uL Lymph # (Auto) 2300 (0358-4859) /uL [place] # (Auto) 600 (0-900) /uL Eos # (Auto) 0 (0-450) /uL Baso # (Auto) 0 (0-100) /uL Sodium 139 (137-145) mmol/L Potassium 3.7 (3.4-5.1) mmol/L Chloride 101 (98-107) mmol/L Carbon Dioxide 28 (22-32) mmol/L BUN 11 (7-17) mg/dL Creatinine 0.65 (0.52-1.04) mg/dL Estimated GFR > 60 (>60) mL/min BUN/Creatinine Ratio 16.9 (6-22) Glucose 106 H (70-100) mg/dL Calcium 9.4 (8.4-10.2) mg/dL Total Bilirubin 0.5 (0.2-1.3) mg/dL AST 33 (14-36) IU/L ALT 33 (<35) IU/L Alkaline Phosphatase 104 (38-126) U/L Total Protein 8.0 (6.3-8.2) g/dL Albumin 4.5 (3.5-5.0) g/dL Globulin 3.5 (1.7-4.1) g/dL Albumin/Globulin Ratio 1.3 (1.0-2.8) Lipase 78 (23-300) U/L Urine RBC None seen (0-5/HPF) Urine WBC 1-5/hpf (0-5/HPF) Ur Squamous Epith Cells 1-5 /hpf (0-5/HPF) Urine Bacteria Many (>30) H (None) Ur Culture Indicated? Specimen cultured Point of Care Testing Test Results Negative Urine Dip Bedside Urine Glucose Negative Bedside Urine Bilirubin - Negative Bedside Urine Ketone - Negative Urine Specific [place] 1.03 Bedside Urine Occult Blood - Negative Bedside Urine pH 6 Bedside Urine Protein + 30 Bedside Urine Urobilinogen - Negative Bedside Urine Nitrite - Negative Bedside Urine Leukocytes ++ 125 Esterase Point of care testing: Point of Care Testing Test Results Negative Urine Dip Bedside Urine Glucose Negative Bedside Urine Bilirubin - Negative Bedside Urine Ketone - Negative Urine Specific [place] 1.03 Bedside Urine Occult Blood - Negative Bedside Urine pH 6 Bedside Urine Protein + 30 Bedside Urine Urobilinogen - Negative Bedside Urine Nitrite - Negative Bedside Urine Leukocytes ++ 125 Esterase Imaging Data Abdominal x-ray: Radiologist's Impression: PROCEDURE:? XR ABDOMEN 1V ? INDICATIONS:? abd pain ? TECHNIQUE:? One view of the abdomen acquired.? ? COMPARISON:? None. ? FINDINGS:? ? Surgical changes and devices:? None.? ? Bowel:? Bowel gas pattern is normal.? ? Soft tissues:? No suspicious abdominal calcifications.? ? Bones:? No suspicious bony lesions.? ? IMPRESSION:? ? 1. Bowel gas pattern within normal limits. MDM Narrative Medical decision making narrative: Patient has a benign abdominal exam. Labs unremarkable. And x-ray is unremarkable. After period of observation here in the emergency department the patient states that she is starting to feel better. She is not nauseous. Her abdominal discomfort has improved somewhat. She is not had a bowel movement since coming here to the ER. Plan will be is to hold on further workup for now. Will discharge patient home we did discuss things that she could try at home to help with the constipation to include oral laxatives. She was given strict return precautions. She expressed understanding and agreement. Discharge Plan Departure Patient Disposition: Home Clinical Impression: Abdominal pain, Nausea Instructions: DI for Abdominal Pain-Adult, DI for Nausea -- Adult Activity Restrictions/Additional Instructions: I do recommend that you continue to take all of your medications as directed. I also recommend that you start a laxative or stool softener to help you have a bowel movement. Return to the emergency department for new or worsening symptoms. Prescriptions: No Action olanzapine [Zyprexa] 10 MG tablet 10 mg PO QDAY Qty: 0 metformin 500 mg tablet 750 mg PO DAILY Rx Instructions: 2 in a.m. gabapentin 300 mg capsule 300 mg PO DAILY lamotrigine 100 mg tablet 100 mg PO DAILY omeprazole 20 mg PO DAILY ibuprofen 200 mg tablet 400 mg PO Q6H Qty: 60 0RF oxycodone 5 mg tablet 5 mg PO Q6H PRN (Reason: pain) Qty: 20 0RF acetaminophen [Tylenol] 325 mg capsule 650 mg PO QID PRN (Reason: pain) Qty: 60 0RF Referrals: Leandro Waite MD [Primary Care Provider] - Stand Alone Forms: Patient Portal/API
--- NOTE | 2022-11-23 19:48 | DI.RAD.S_ITS ---
PROCEDURE: XR ABDOMEN 1V INDICATIONS: abd pain TECHNIQUE: One view of the abdomen acquired. COMPARISON: None. FINDINGS: Surgical changes and devices: None. Bowel: Bowel gas pattern is normal. Soft tissues: No suspicious abdominal calcifications. Bones: No suspicious bony lesions. IMPRESSION: 1. Bowel gas pattern within normal limits. Dictated by: Russell Elias M.D. on 11/23/2022 at 20:24 Approved by: Russell Elias M.D. on 11/23/2022 at 20:24
[2022-11-23 20:14] LABS: Add Manual Diff / Slide Review NO; Basophils Absolute Auto 0 /uL (0-100); Basophils Percent Auto 0.4 % (0-2); Eosinophils Absolute Auto 0 /uL (0-450); Hematocrit 36.8 % (36-46); Hemoglobin 12.2 g/dL (12.0-16.0); Lymphocytes Absolute Auto 2300 /uL (1100-4500); Lymphocytes Percent Auto 28.7 % (25-40); Mean Corpuscular HGB Conc 33.2 % (30-36); Mean Corpuscular Hemoglobin 27.6 PG (26-34); Mean Corpuscular Volume 83.2 fL (80-100); Monocytes Absolute Auto 600 /uL (0-900); Monocytes Percent Auto 8.2 % (3-14); Neutrophils Absolute Auto 5000 /uL (1500-7000); Neutrophils Percent Auto 62.7 % (50-75); Platelet Count 283 X10^3/uL (150-400); Red Blood Cell Count 4.43 X10^6/uL (4.0-5.2); Red Cell Distribution Width 14.5 % (11.6-14.8); White Blood Cell Count 7.9 X10^3/uL (4.5-11.0)
[2022-11-23 20:28] LABS: Alanine Aminotransferase 33 IU/L (<35); Albumin 4.5 g/dL (3.5-5.0); Albumin Globulin Ratio 1.3 (1.0-2.8); Alkaline Phosphatase 104 U/L (38-126); Aspartate Aminotransferase 33 IU/L (14-36); BUN Creatinine Ratio 16.9 (6-22); Bilirubin Total 0.5 mg/dL (0.2-1.3); Blood Urea Nitrogen 11 mg/dL (7-17); Calcium 9.4 mg/dL (8.4-10.2); Carbon Dioxide 28 mmol/L (22-32); Chloride 101 mmol/L (98-107); Estimated Glomerular Filt Rate > 60 mL/min (>60); Globulin 3.5 g/dL (1.7-4.1); Glucose 106 mg/dL (70-100); HEMOLYSIS < 15 (0-50); Lipase 78 U/L (23-300); Potassium 3.7 mmol/L (3.4-5.1); Sodium 139 mmol/L (137-145)
[2022-11-23 20:33] LABS: Bacteria Urine Many (>30); Culture Indicated Urine Specimen Cultured; RBC Urine None Seen (0-5/HPF); Squamous Epithelial Cell Urine 1-5 /HPF (0-5/HPF); WBC Urine 1-5/HPF (0-5/HPF)
[2022-11-23 21:27] VITALS: PULSE 86; O2SAT 96
[2022-11-23 21:28] VITALS: BP 136/75; PULSE 80; O2SAT 97
[2022-11-23 21:30] VITALS: BP 133/76; PULSE 83; O2SAT 96
== END 2022-11-23 21:50 | disposition home or self-care (01) ==
PROVIDERS: Emergency Provider Emergency Medicine; PCP Internal Medicine
DX: R10.30 Lower abdominal pain, unspecified (principal); R11.2 Nausea with vomiting, unspecified
CPT/HCPCS: 36415; 74018; 80053; 81003; 81015; 81025; 83690; 85025; 87077; 87086; 99283

== ENCOUNTER 2023-07-20 08:56 | Day surgery (SDC) | payer OTHER, MEDICAID, SELFPAY ==
[2023-07-20 09:23] VITALS: BP 137/89; PULSE 72; RESP 16; TEMP 36.2; O2SAT 98
[2023-07-20] MEDS: LACTATED RINGERS 1,000 ML 42 ML IV (09:34)
--- NOTE | 2023-07-20 09:35 | PM.HP.1 ---
History of Present Illness History of Present Illness Date Patient Seen: 07/20/23 Chief complaint: SDC Narrative: Iron deficiency anemia with history of erosive esophagitis PFSH Medical History Depression Erosive esophagitis Schizophrenia Surgical History (Updated 11/02/22 @ 18:44 by Joanne Romano MD) Hx laparoscopic cholecystectomy H/O reduction mammoplasty Social History marital status: unmarried,single household members: spouse, children and friend(s) lives independently: Yes occupational status: unemployed Smoking Status: Never smoker alcohol intake: former substance use type: does not use Meds Home Medications and Allergies Home Medications Medication Instructions Recorded Confirmed Type olanzapine 10 mg tablet (Zyprexa) 10 mg PO QDAY ##0 01/29/17 07/20/23 History gabapentin 300 mg capsule 300 mg PO DAILY 02/12/22 09/11/22 History lamotrigine 100 mg tablet 100 mg PO DAILY 02/12/22 07/20/23 History omeprazole 20 mg PO DAILY 06/02/22 07/20/23 History acetaminophen 325 mg capsule 650 mg (2 x 325 mg) PO QID PRN 08/29/22 07/20/23 Rx (Tylenol) pain #60 caps Allergies Allergy/AdvReac Type Severity Reaction Status Date / Time No Known Drug Allergies Allergy Verified 07/20/23 09:16 Exam Vital Signs (past 8 hours): - 07/20/23 09:23 Temperature 97.1 F L Pulse Rate 72 Respiratory Rate 16 Blood Pressure 137/89 Pulse Oximetry 98 Oxygen Delivery Method Room Air Oxygen Delivery Method Room Air Narrative Exam Narrative: Oropharynx free of lesions Chest clear to auscultation percussion Cardiac exam reveals no S3 or murmur Assessment & Plan Assessment & Plan narrative: Iron deficiency anemia with history of erosive esophagitis rule out continued erosive esophagitis. Risks, benefits, alternatives have been explained.
--- NOTE | 2023-07-20 09:55 | PM.OP.EGD ---
Operative Date/Time/Diagnoses Date of procedure: 07/20/23 Pre-op diagnosis: See indication and findings Procedure & Clinicians Study performed: EGD Indications: History of erosive esophagitis with iron deficiency anemia Surgeon: Katelyn Grubbs Procedure Notes Procedure in detail: After informed consent was obtained patient was placed in left lateral decubitus position. The video upper scope was placed into the oropharynx with the patient's help swallowed into the esophagus. The esophagus stomach and duodenum were carefully examined. On withdrawal retroflexed view the GE junction was performed. The scope was removed. The patient tolerated procedure well. Blood loss none Complications none Sedation mac Findings 1. Grade C erosive esophagitis from 31-34 cm. 2. Slight stricture at 34 cm not dilated at this time 3. Moderate hiatal hernia with diaphragmatic hiatus at 39 cm/5 cm 4. Normal stomach and normal duodenal bulb and sweep Unfortunately Adrianna is already on Nexium b.i.d.. Therefore I will add Pepcid 40 mg daily [id number] for her to take q.h.s. just before bed to hopefully cover for any nocturnal acid breakthrough. She will follow-up with Dr. Layton in within a 1-2 months. I do not think she needs colonoscopy at this time.
[2023-07-20 09:59] VITALS: BP 130/94; PULSE 75; RESP 17; TEMP 36.1; O2SAT 94
[2023-07-20 10:04] VITALS: BP 135/90; PULSE 73; RESP 13; O2SAT 96
[2023-07-20 10:09] VITALS: BP 131/93; PULSE 71; RESP 13; O2SAT 97
[2023-07-20 10:12] VITALS: BP 131/93; PULSE 70; RESP 16; O2SAT 97
== END 2023-07-20 10:31 | disposition home or self-care (01) ==
PROVIDERS: PCP Internal Medicine; Referring Provider Internal Medicine Gastroenterology; Visit Provider Internal Medicine Gastroenterology
PROC: 0DJ08ZZ Inspection of Upper Intestinal Tract, Via Natural or Artificial Opening Endoscopic (ICD-10-PCS; CPT 43235; principal; 2023-07-20 10:00)
DX: Z87.19 Personal history of other diseases of the digestive system (principal); D50.9 Iron deficiency anemia, unspecified; K44.9 Diaphragmatic hernia without obstruction or gangrene; K20.80 Other esophagitis without bleeding; K22.2 Esophageal obstruction
CPT/HCPCS: 43235; J2704